=== PATIENT | male | born 1995 | race Caucasian/White ===

== ENCOUNTER → 2024-09-03 12:45 | Outpatient (REF) | payer OTHER, SELFPAY | LOC: HWRAD 12:45 | PROVIDERS: ATTENDING PHYSICIAN Surgery; FAMILY PHYSICIAN Family Medicine | DX: N43.3 Hydrocele, unspecified (principal) | CPT/HCPCS: 76870; 93976 ==

== ENCOUNTER 2024-09-24 06:31 | Day surgery (SDC) | payer OTHER, SELFPAY ==
[2024-09-24] VITALS (8 sets, daily range): BP systolic 112–124; BP diastolic 76–87; BMI 28.4
[2024-09-24] MEDS: NORMOSOL-R/PLASMALYTE-A 1000 IV (13:15)
--- NOTE | 2024-09-24 16:09 | W.SUR.PREOP ---
Pre-Operative Surgical Note
-
I have examined this patient prior to the performance of the scheduled procedure.
The patient's condition is unchanged from the time of the current History and
Physical and the patient is able to undergo the scheduled procedure.
To OR for bilateral hydrocelectomy
[2024-09-24] MEDS: ROXICODONE 5 MG PO (19:06)
== END 2024-09-24 19:11 | disposition home or self-care (01) ==
LOC: SDS 06:31
PROVIDERS: ATTENDING PHYSICIAN Surgery
DX: N43.3 Hydrocele, unspecified (principal)
CPT/HCPCS: 55041